=== PATIENT | male | born 2000 | race Caucasian/White ===

== ENCOUNTER 2022-10-27 14:09 | Emergency (ER) | payer MEDICAID, SELFPAY ==
[2022-10-27 14:23] VITALS: BP 157/108; PULSE 78; RESP 16; TEMP 36.7; O2SAT 97; BMI 27.4
--- NOTE | 2022-10-27 14:43 | ED_ITS ---
HPI - General Adult General Chief complaint: Bug Bite Stated complaint: Bite, irritation L forearm Time Seen by Provider: 10/27/22 14:37 History of Present Illness HPI narrative: This 22-year-old female comes in with some kind of bug bite to his left forearm. He noticed this this morning and sees that there is a streak of red extending proximally toward his elbow. He does not report any fevers or other symptoms of feeling ill. He was not aware of any bug bite or other injury event. Related Data Home Medications Medication Instructions Recorded Confirmed No Known Home Medications 10/27/22 10/27/22 Allergies Allergy/AdvReac Type Severity Reaction Status Date / Time morphine Allergy Unknown Verified 10/27/22 14:26 Review of Systems Status of ROS: Reports: 10 or more systems reviewed and unremarkable except as noted in History and below Narrative: Constitutional: No fevers, no weight gain or loss. Eyes: No discharge. No vision changes. HENT: No congestion, no sore throat, no ear pain. Cardiovascular: No chest pain, no palpitations. Respiratory: No shortness of breath, no wheezes, no cough. Gastrointestinal: No abdominal pain, no vomiting, no diarrhea. Genitourinary: No dysuria, no hematuria. Musculoskeletal: Normal range of motion. Skin: No rashes, no pruritis. Bug bite with surrounding erythema and a streak toward his left elbow. Neurological: No dizziness, weakness, sensory change, speech change. Endo/Heme/Allergies: No bruising or bleeding. No polydipsia. Pysch: no suicidality, no anxiety, no insomnia. All other systems reviewed and are negative. PFSH PFSH Social History Smoking Status: Never smoker How often do you have a drink containing alcohol: never How often do you have six or more drinks on one occasion: Never AUDIT-C Alcohol total score: 0 Non-prescribed substance use: denies use Exam Narrative: Exam Narrative: Constitutional: Well-developed, well-nourished, no acute distress. HEENT: Normocephalic, atraumatic. Neck: Normal range of motion. Nontender. Supple. Heart: Regular. No murmurs. Normal rate. Intact distal pulses. Lungs: Clear to auscultation. No chest discomfort. No wheezes, rhonchi, or rales. Abdomen: Normal bowel sounds. Nontender. No rebound tenderness. Genitalia: Deferred. Back: No midline tenderness. Normal range of motion. Extremities: Normal range of motion. No injury. Skin: Intact. No rash. Warm. Left forearm has an area that is erythematous about 3 cm in diameter with a central bug bite type lesion. There is a red streak extending proximally to his elbow. Neurologic: No altered sensation. No weakness. Alert and oriented. Psychiatric: No suicidality. No anxiety or depression. No insomnia. Nursing notes and vitals signs are reviewed. Const: Vital Signs, click to edit/add: Vital Signs - 24 hr 10/27/22 14:23 Temperature 98.0 F Pulse Rate [Pulse Oximeter] 78 Respiratory Rate 16 Blood Pressure [Ri t Upper Arm] 157/108 H Pulse Oximetry 97 Oxygen Delivery Me thod Room Air Course Vital Signs Vital signs: Initial Vital Signs Temperature 98.0 F 10/27/22 14:23 Temperature Source Temporal Artery Scan 10/27/22 14:23 Pulse Rate 78 10/27/22 14:23 Respiratory Rate 16 10/27/22 14:23 Blood Pressure 157/108 H 10/27/22 14:23 Blood Pressure Mean 124 H 10/27/22 14:23 Blood Pressure Position Sitting 10/27/22 14:23 Pulse Oximetry 97 10/27/22 14:23 Oxygen Delivery Method Room Air 10/27/22 14:23 Vital Signs Temperature 98.0 F 10/27/22 14:23 Pulse Rate 78 10/27/22 14:23 Respiratory Rate 16 10/27/22 14:23 Blood Pressure 157/108 H 10/27/22 14:23 Pulse Oximetry 97 10/27/22 14:23 Oxygen Delivery Method Room Air 10/27/22 14:23 Temperature 98.0 F 10/27/22 14:23 Pulse Rate 78 10/27/22 14:23 Respiratory Rate 16 10/27/22 14:23 Blood Pressure 157/108 H 10/27/22 14:23 Pulse Oximetry 97 10/27/22 14:23 Oxygen Delivery Method Room Air 10/27/22 14:23 Medical Decision Making MDM Narrative Medical decision making narrative: This patient comes in with what appears to be a bug bite with now a red streak extending toward his elbow. He arrives with normal vital signs and states that he feels normal. He notes that there is a little bit a warmth to this area but it is not particularly painful. This does appear to be some sort of insect or bug bite with a secondary infection. Patient received a prescription for Keflex. I did describe signs and symptoms that would indicate a need for return and re-evaluation. Discharge Plan Discharge Clinical Impression: Bug bite with infection Patient Disposition: Home, Self-Care Condition: Unchanged Additional Instructions: Take medication as prescribed. Follow up with MD or return if worsening symptoms occur. Prescriptions: No Action No Known Home Medications Follow Up/Referrals: Provider,Not a Local [Primary Care Provider] - Stand Alone Forms: [employer] Info Instructions
== END 2022-10-27 15:06 | disposition home or self-care (01) ==
LOC: ED 14:58
PROVIDERS: Emergency Provider Emergency Medicine Emergency Medical Services
DX: S50.862A Insect bite (nonvenomous) of left forearm, initial encounter (principal)
CPT/HCPCS: 99283; 99284